=== PATIENT | male | born 1995 | race American Indian/Alaskan Native ===

== ENCOUNTER 2018-11-27 19:58 | Emergency (ER) | payer OTHER ==
[2018-11-27] MEDS ORDERED: ZITHROMAX PO ONE (20:47)
[2018-11-27] MEDS ORDERED: XYLOCAINE 1% MPF 5 mL INFILTRATI ONE (20:47)
[2018-11-27] MEDS ORDERED: ROCEPHIN IM ONE (20:47)
--- NOTE | 2018-11-27 20:48 | Emergency Department Report ---
ED Dysuria HPI - HPI Chief Complaint: Urogenital-Male Stated Complaint: DISCHARGE/UTI Time Seen by Provider: 11/27/18 20:44 Duration: 2 Days Severity: Mild Symptoms: Dysuria: Yes, Frequency: No, Suprapubic Pain: No, Flank Pain: No, Fever: No, Hematuria: No, Abdominal Pain: No, Previous UTI's: No Other History: 23 YO WHO HAD UNPROTECTED SEX NOW WITH DISCHARGE AND DYSURIA. ED Review of Systems ROS: Stated complaint: DISCHARGE/UTI Other details as noted in HPI Comment: All other systems reviewed and negative ED Past Medical Hx - Past Medical History Previous Medical History?: No - Surgical History Past Surgical History?: No Dysuria Exam - Exam General: Vital signs noted. No distress. Alert and acting appropriately. Exam: Yes Moist Mucous Membranes, No CVA Tenderness, No Abdominal Tenderness, No Rigidity or Guarding ED Medical Decision Making - Medical Decision Making UA AND GC SENT EMPIRIC TREATMENT- PUBLIC HEALTH RISK VSS NO FEVER NO ABD PAIN NON TOXIC Critical care attestation.: If time is entered above; I have spent that time in minutes in the direct care of this critically ill patient, excluding procedure time. ED Disposition Clinical Impression: Concern about STD in male without diagnosis, Dysuria Disposition: DC-01 TO HOME OR SELFCARE Is pt being admited?: No Does the pt Need Aspirin: No Condition: Stable Instructions: Safe Sex (ED) Referrals: ZION GONSALEZ MD [Staff Physician] - 3-5 Days Time of Disposition: 20:46
== END 2018-11-27 22:30 | disposition home or self-care (01) ==
LOC: ED 19:58
DX: R30.0 Dysuria (principal); R36.9 Urethral discharge, unspecified
CPT/HCPCS: 96372; 99282; J0696

== ENCOUNTER 2018-12-07 16:00 | Emergency (ER) | payer SELFPAY ==
[2018-12-07 16:22] VITALS: BP 122/86
--- NOTE | 2018-12-07 16:47 | Emergency Department Report ---
Blank Doc - Documentation Documentation: Patient reports glands flaring up to neck and glands to groin swollen. No pe nile discharge. Checked for ST 2 weeks ago and was treated for Gonorrhea and Cklamydia. Had urine sent Reports burning with urinating x 2 weeks . No fever or chills. No blood in urine Urinalysis
[2018-12-07 17:39] LABS: Bilirubin,Urine NEG (Negative); Blood,Urine NEG (Negative); Color,Urine Yellow (Yellow); Mucus,Urine FEW /HPF; Urobilinogen,Urine < 2.0 mg/dL (<2.0)
--- NOTE | 2018-12-07 19:11 | Emergency Department Report ---
ED Male HPI - General Chief complaint: Urogenital-Male Stated complaint: BURNING URINE Time Seen by Provider: 12/07/18 16:43 Source: patient Mode of arrival: Ambulatory Limitations: No Limitations - History of Present Illness Initial comments: Patient is a 23-year-old male who presents to the emergency room with complaints of dysuria that began 2 weeks ago. He states he feels like his "glands are swollen in his groin." Denies any penile discharge. He denies any penile pain, testicular pain, testicular edema. He states he was evaluated in the emergency room on 11/27 and given treatment for G/C. He states he is sexually active and has been sexually active with 2 partners in the last 2 months. He states his partners were tested and treated as well but "did not have any positive results." He states he just feels "paranoid about having an STD." he did not follow up with the primary care doctor or the health department. he denies any past medical history or allergies to medications. - Related Data Allergies Allergy/AdvReac Type Severity Reaction Status Date / Time No Known Allergies Allergy Verified 12/07/18 16:04 ED Review of Systems ROS: Stated complaint: BURNING URINE Other details as noted in HPI Comment: All other systems reviewed and negative ED Past Medical Hx - Past Medical History Previous Medical History?: No - Surgical History Past Surgical History?: Yes Hx Appendectomy: Yes - Social History Smoking Status: Current Every Day Smoker ED Physical Exam - General Limitations: No Limitations General appearance: alert, in no apparent distress - Head Head exam: Present: atraumatic, normocephalic - Eye Eye exam: Present: normal appearance, PERRL - ENT ENT exam: Present: mucous membranes moist - exam: Present: normal inspection, other (no lesions, blisters, testicular edema, testicular pain, or LAD present, 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 Absent: testicular tenderness, urethral discharge, scrotal swelling - Neurological Exam Neurological exam: Present: alert, oriented X3 - Psychiatric Psychiatric exam: Present: normal affect, normal mood - Skin Skin exam: Present: warm, dry, intact ED Course Vital Signs 12/07/18 16:21 Temperature 97.7 F Pulse Rate 76 Respiratory 16 Rate Blood Pressure 122/86 O2 Sat by Pulse 99 Oximetry ED Medical Decision Making - Lab Data Lab Results 12/07/18 Range/Units 17:10 Urine Color Yellow (Yellow) Urine Turbidity Clear (Clear) Urine pH 6.0 (5.0-7.0) Ur Specific [facility] 1.024 (1.003-1.030) Urine Protein 100 mg/dl (Negative) mg/dL Urine Glucose (UA) Neg (Negative) mg/dL Urine Ketones Neg (Negative) mg/dL Urine Blood Neg (Negative) Urine Nitrite Neg (Negative) Urine Bilirubin Neg (Negative) Urine Urobilinogen < 2.0 (<2.0) mg/dL Ur Leukocyte Esterase Neg (Negative) Urine WBC (Auto) 2.0 (0.0-6.0) /HPF Urine RBC (Auto) 2.0 (0.0-6.0) /HPF U Epithel Cells (Auto) < 1.0 (0-13.0) /HPF Urine Mucus Few /HPF - Medical Decision Making Patient is a 23-year-old male who presents to the emergency room with complaints of dysuria that began 2 weeks ago. He states he feels like his "glands are swollen in his groin." Denies any penile discharge. He denies any penile pain, testicular pain, testicular edema. He states he was evaluated in the emergency room on 11/27 and given treatment for G/C. He states he is sexually active and has been sexually active with 2 partners in the last 2 months. He states his partners were tested and treated as well but "did not have any positive results." He states he just feels "paranoid about having an STD." he did not follow up with the primary care doctor or the health department. he denies any past medical history or allergies to medications. normal examination. UA is normal. pt gave another urine sample and sent a urine culture and G/C. advised pt to please check back with medical records in 1 week with results of your tests. Please follow-up with the health department or primary care doctor for further STD testing. Return to the emergency room for any new or worsening symptoms. - Differential Diagnosis UTI, STD, dysuria Critical care attestation.: If time is entered above; I have spent that time in minutes in the direct care of this critically ill patient, excluding procedure time. ED Disposition Clinical Impression: Concern about STD in male without diagnosis Disposition: -01 TO HOME OR SELFCARE Is pt being admited?: No Does the pt Need Aspirin: No Condition: Stable Instructions: Safe Sex (ED) Additional Instructions: Please check back with medical records in 1 week with results of your tests. Please follow-up with the health department or primary care doctor for further STD testing. Return to the emergency room for any new or worsening symptoms. Referrals: [facility] [Outside] - 2-3 Days [facility] [Outside] - 2-3 Days Time of Disposition: 19:11 Print Language: [id number]
== END 2018-12-07 19:27 | disposition home or self-care (01) ==
LOC: ED 16:00
DX: R30.0 Dysuria (principal); F17.200 Nicotine dependence, unspecified, uncomplicated; Z90.49 Acquired absence of other specified parts of digestive tract
CPT/HCPCS: 81001; 87591